=== PATIENT | male | born 1965 | race Caucasian/White ===

== ENCOUNTER 2022-11-06 14:11 | Emergency (ER) | payer SELFPAY ==
[2022-11-06 14:27] VITALS: BP 146/86; PULSE 89; RESP 16; TEMP 36.4; O2SAT 97; BMI 28.1
[2022-11-06] MEDS: ONDANSETRON 4 MG/2 ML INJ IV (14:32)
[2022-11-06 14:46] LABS: Add Manual Diff / Slide Review NO; Basophils Absolute Auto 0 /uL (0-100); Basophils Percent Auto 0.6 % (0-2); Eosinophils Absolute Auto 100 /uL (0-450); Eosinophils Percent Auto 0.9 % (2-4); Hematocrit 45.1 % (41-53); Hemoglobin 15.4 g/dL (13.5-17.5); Lymphocytes Absolute Auto 1400 /uL (1100-4500); Mean Corpuscular Hemoglobin 29.9 PG (26-34); Mean Corpuscular Volume 87.8 fL (80-100); Monocytes Absolute Auto 600 /uL (0-900); Monocytes Percent Auto 8.3 % (3-14); Neutrophils Absolute Auto 4900 /uL (1500-7000); Neutrophils Percent Auto 70.2 % (50-75); Platelet Count 245 X10^3/uL (150-400); Red Blood Cell Count 5.14 X10^6/uL (4.5-5.9); Red Cell Distribution Width 13.1 % (11.6-14.8); White Blood Cell Count 6.9 X10^3/uL (4.5-11.0)
[2022-11-06 14:54] LABS: Alanine Aminotransferase 37 IU/L (<50); Albumin 4.7 g/dL (3.5-5.0); Albumin Globulin Ratio 1.5 (1.0-2.8); Alkaline Phosphatase 83 U/L (38-126); Aspartate Aminotransferase 32 IU/L (17-59); BUN Creatinine Ratio 19.9 (6-22); Bilirubin Total 0.5 mg/dL (0.2-1.3); Blood Urea Nitrogen 27 mg/dL (9-20); Calcium 9.2 mg/dL (8.4-10.2); Carbon Dioxide 33 mmol/L (22-32); Chloride 100 mmol/L (98-107); Estimated Glomerular Filt Rate > 60 mL/min (>60); Globulin 3.2 g/dL (1.7-4.1); Glucose 107 mg/dL (70-100); HEMOLYSIS < 15 (0-50); Lipase 86 U/L (23-300); Potassium 4.2 mmol/L (3.4-5.1); Sodium 139 mmol/L (137-145); Total Protein 7.9 g/dL (6.3-8.2)
[2022-11-06 15:15] VITALS: BP 133/81; PULSE 83; RESP 18; O2SAT 99
--- NOTE | 2022-11-06 15:48 | ED_ITS ---
HPI - Nausea/Vomiting/Diarrhea General Chief complaint: Nausea/Vomiting/Diarrhea Stated complaint: drank a 16 oz drink started vomiting feels weird Time Seen by Provider: 11/06/22 15:38 Source: patient Mode of arrival: Ambulatory History of Present Illness HPI Narrative: This is a 57-year-old gentleman who presents to the emergency department complaining of nausea and emesis episode x1 after he drank a very drank today. He states that he has felt dehydrated and has not been drinking much water over the last couple of days. He has a history of GERD and diverticulitis. States that he feels tired today, his states that he endorsed not feeling well this morning and having muscle aches. States he is had COVID 2 times refuses to take a COVID test. He denies upper respiratory symptoms, denies fever, chills, urinary changes, or stool changes. His last BM was before he came in states it was normal and soft. Denies any pain at this time, states that he he feels much better and would like to go home. Related Data Previous Rx's Medication Instructions Recorded ciprofloxacin HCl 500 mg tablet 500 mg PO BID 10 days #0 tabs 01/15/17 (Cipro) levofloxacin 750 mg tablet 750 mg PO QDAY 10 days #0 tabs 01/15/17 (Levaquin) tramadol 50 mg tablet 1 - 2 tab PO Q4HP PRN #10 tabs 01/15/17 ondansetron 4 mg disintegrating 4 mg PO Q8H PRN nausea and 11/06/22 tablet vomiting #10 tabs Allergies Allergy/AdvReac Type Severity Reaction Status Date / Time No Known Drug Allergies Allergy Verified 11/06/22 14:27 Review of Systems Review of Systems ROS Unobtainable: All systems reviewed & are unremarkable except as noted in HPI and below Patient History Social History Smoking Status: Unknown if ever smoked Smoking Status: Unknown if ever smoked alcohol intake frequency: holidays/special occasions only Substance Use Type: does not use Exam Narrative Exam Narrative: Reviewed vitals signs and nursing notes. General: cooperative, in no acute distress, well groomed, appears tired and uncomfortable, wishes to go home. HEENT: symmetrical facial expressions, dry mucous membranes Cardiovascular: regular rate and rhythm, no peripheral edema, warm extremities Respiratory: normal effort, able to speak in complete sentences, without wheezing, stridor, or abnormal breath sounds. No retractions or tachypnea. GI: abdomen soft, nontender to palpation in all quadrants, nondistended, without masses, rebound tenderness or CVA tenderness bilaterally. MSK: moves all extremities, neurovascularly intact, no weakness, normal tone Skin: brisk capillary refill, without pallor or erythema Neuro: normal speech and cognition, A&O x3, ambulatory, clear speech Initial Vital Signs Initial Vital Signs: Vital Signs Temperature 97.6 F 11/06/22 14:27 Pulse Rate 89 11/06/22 14:27 Respiratory Rate 16 11/06/22 14:27 Blood Pressure 146/86 H 11/06/22 14:27 Pulse Oximetry 97 11/06/22 14:27 Oxygen Delivery Method Room Air 11/06/22 14:27 Course Orders Ordered: ED Orders 11/06/22 14:30 Complete Blood Count AUTO DIFF Stat Comprehensive Metabolic Panel Stat Lipase Stat 11/06/22 14:42 EKG-12 Lead Stat 11/06/22 15:39 UA Complete [Urinalysis and Microscopic] Stat 11/06/22 15:51 Covid-19 + FLU A/B + RSV - PCR Stat Ondansetron HCl (Ondansetron 4 Mg/2 Ml Inj) 4 mg IV NOW PRN PRN Reason: Nausea And Vomiting Last Admin: 11/06/22 14:32 Dose: 4 mg Documented By: [place] Vital Signs Vital signs: Vital Signs - 8 hr 11/06/22 14:27 Temperature 97.6 F Pulse Rate 89 Respiratory Rate 16 Blood Pressure 146/86 H Pulse Oximetry 97 Oxygen Delivery Method Room Air MDM - Nausea/Vomiting/Diarrhea Lab Data 11/06/22 14:30 11/06/22 14:30 Labs: Lab Results 11/06/22 11/06/22 Range/Units 14:30 14:30 WBC 6.9 (4.5-11.0) X10^3/uL RBC 5.14 (4.5-5.9) X10^6/uL Hgb 15.4 (13.5-17.5) g/dL Hct 45.1 (41-53) % MCV 87.8 (80-100) fL MCH 29.9 (26-34) PG MCHC 34.0 (30-36) % RDW 13.1 (11.6-14.8) % Plt Count 245 (150-400) X10^3/uL Neut % (Auto) 70.2 (50-75) % Lymph % (Auto) 20.0 L (25-40) % Petroleum % (Auto) 8.3 (3-14) % Eos % (Auto) 0.9 L (2-4) % Baso % (Auto) 0.6 (0-2) % Neut # (Auto) 4900 (3274-7653) /uL Lymph # (Auto) 1400 (3333-3552) /uL Petroleum # (Auto) 600 (0-900) /uL Eos # (Auto) 100 (0-450) /uL Baso # (Auto) 0 (0-100) /uL Sodium 139 (137-145) mmol/L Potassium 4.2 (3.4-5.1) mmol/L Chloride 100 (98-107) mmol/L Carbon Dioxide 33 H (22-32) mmol/L BUN 27 H (9-20) mg/dL Creatinine 1.36 H (0.66-1.25) mg/dL Estimated GFR > 60 (>60) mL/min BUN/Creatinine Ratio 19.9 (6-22) Glucose 107 H (70-100) mg/dL Calcium 9.2 (8.4-10.2) mg/dL Total Bilirubin 0.5 (0.2-1.3) mg/dL AST 32 (17-59) IU/L ALT 37 (<50) IU/L Alkaline Phosphatase 83 (38-126) U/L Total Protein 7.9 (6.3-8.2) g/dL Albumin 4.7 (3.5-5.0) g/dL Globulin 3.2 (1.7-4.1) g/dL Albumin/Globulin Ratio 1.5 (1.0-2.8) Lipase 86 (23-300) U/L Urine Dip Bedside Urine Glucose Negative Bedside Urine Bilirubin - Negative Bedside Urine Ketone - Negative Urine Specific [place] 1.015 Bedside Urine Occult Blood - Negative Bedside Urine pH 7.0 Bedside Urine Protein - Negative Bedside Urine Urobilinogen - Negative Bedside Urine Nitrite - Negative Bedside Urine Leukocytes - Negative Esterase MDM Narrative Medical decision making narrative: Chief Complaint: Emesis x1, fatigue Independent historian: Patient Differential diagnoses include but are not limited to: Acute viral process including COVID-19, biliary disease, gastroenteritis, GERD, bowel obstruction, perforated viscus, appendicitis, colitis, diverticulitis, IBD/IBS, intestinal ischemia, obstructive uropathy, lumbar radiculopathy, acute cystitis, pyelonephritis, acute hepatitis, mesenteric ischemia, urinary retention. Doubt atypical ACS. No peritoneal signs on abdominal exam. Patient remains p.o. tolerant. Serial abdominal exam without increase in abdominal pain. Extensive conversation about ER return precautions and need for close follow-up. I have independently reviewed the patient's vital signs and nursing notes as well as prior records if available. Pertinent lab findings reviewed: Patient's CBC shows lymphopenia without other abnormalities, CMP is significant for creatinine of 1.36 with most recent from 2017 of 0.9, BUN of 27 and carbon dioxide of 33 with a GFR of over 60. No elevation to his liver enzymes or lipase. Urine dip is negative for WBCs or RBCs. When it met with the patient, he wishes to go home, denies wanting viral testing or additional testing because he states that he feels better would like to go home. He appears quite fatigued, we discussed his creatinine, and I will wanted to complete a Respiratory PCR to further evaluate the lymphopenia and support his muscle aches that he complained of having this morning. I encouraged him to start hydrating with plenty of clear fluids, I encouraged him to come back tomorrow or if he feels worse. Discussed that he can have recurrent divert iculitis but he denies stool changes, abdominal pain and was nontender to abdominal exam without flank pain bilaterally. This is most likely an acute viral process however he does have history of GERD, takes Pepcid at night and pantoprazole in the morning. I encouraged him to continue on this but he denies any worsening epigastric pain. He is nontoxic, without fever, and understands to return to the emergency department for any worsening of his symptoms and to recheck with his primary care provider as needed. Social considerations that may affect disposition: none Questions are addressed and there is agreement with the plan and for follow-up. Patient is appropriate for outpatient management. MIPS: This encounter doesn't have any diagnosis' associated with MIPS criteria. Discharge Plan Departure Patient Disposition: Home Clinical Impression: Vomiting Qualifiers: Vomiting type: unspecified Nausea presence: without nausea Qualified Code(s): R11.11 - Vomiting without nausea Instructions: DI for Dehydration -- Adult, DI for Vomiting -- Adult Activity Restrictions/Additional Instructions: *You have been diagnosed with an episode of vomiting which could be due to a viral illness. Your lab work does not suggest a bacterial infection however it does show that you are dehydrated and your kidney function has slightly worsened. This will respond well to hydration. Please use Zofran as needed for nausea. This could be another problem like diverticulitis, kidney stone, a viral illness like gastroenteritis or COVID, could also be influenza. Please follow-up with your primary care provider if you are having worsening symptoms, or come back to the emergency department if you are unable to keep anything down. Please treat fever with Tylenol and ibuprofen. I suggest follow-up with Gastroenterology for repeat endoscopy if you have worsening epigastric pain. The urine does not look infected however it also confirms that you are dehydrated. Please drink plenty of clear fluids today and tomorrow, use Zofran as needed, rehydrate herself, if you notice that you are having abdominal pain in the lower quadrants, this may be a recurrence of diverticulitis so please consider a stool softener if you need one. *What to do: *Please continue to take your regular medications as directed. [x ] New medication prescriptions sent to your pharmacy: [[facility] ] [ ] New medication written as a paper prescription [ ] No new medications given *Please follow up with your primary care provider in 2-3 days, call for an appointment. Let them know you were seen in the Emergency Department and that we asked that you be seen for follow-up. We will electronically transmit a record of today's note if your PCP is in our system *If you do not have a primary care provider please contact [phone] to establish care with one of [facility] primary care providers. *Return to Emergency Department if you should have any new, worsening, or conc erning symptoms, such as [fever greater than 101F, chills, worsening pain, persistent vomiting or other bothersome symptoms]. Prescriptions: New ondansetron 4 mg tablet,disintegrating 4 mg PO Q8H PRN (Reason: nausea and vomiting) Qty: 10 0RF No Action ciprofloxacin HCl [Cipro] 500 MG tablet 500 mg PO BID 10 Days Qty: 0 0RF levofloxacin [Levaquin] 750 MG tablet 750 mg PO QDAY 10 Days Qty: 0 0RF tramadol 50 MG tablet 1 - 2 tab PO Q4HP PRNQty: 10 0RF Referrals: Tracy Orozco PA-C [Primary Care Provider] - Stand Alone Forms: Patient Portal/API
[2022-11-06 16:36] VITALS: BP 134/83; PULSE 84; O2SAT 96
--- NOTE | 2022-11-06 16:42 | PC.NURSE ---
offered patient to do a covid, rsv, and influenza swab. pt declined at this time. reports he feels better from when he came in. pt was able to drink water. no vomitting.
[2022-11-06 16:48] LABS: Appearance Urine UA CLEAR; Bilirubin Urine UA NEGATIVE (NEGATIVE); Color Urine UA YELLOW; Glucose Urine UA NEGATIVE (Negative); Ketones Urine UA NEGATIVE (NEGATIVE); Leukocyte Esterase Urine UA NEGATIVE (NEGATIVE); Nitrite Urine UA NEGATIVE (Negative); Occult Blood Urine UA NEGATIVE (Negative); Protein Urine UA NEGATIVE (Negative); Urobilinogen Urine UA 0.2 E.U./dL (0.2); pH Urine UA 7.5 (4.5-8.0)
[2022-11-06 17:02] LABS: Culture Indicated Urine Cult Not Indicated
[2022-11-06 17:03] LABS: Bacteria Urine None Seen; RBC Urine None Seen (0-5/HPF); Squamous Epithelial Cell Urine None Seen (0-5/HPF); WBC Urine None Seen (0-5/HPF)
== END 2022-11-06 16:49 | disposition home or self-care (01) ==
PROVIDERS: Emergency Medicine; Emergency Provider Nurse Practitioner Critical Care Medicine; Family Provider Physician Assistant Medical; PCP Physician Assistant Medical
DX: R11.11 Vomiting without nausea (principal); Z86.16 Personal history of COVID-19; R10.9 Unspecified abdominal pain
CPT/HCPCS: 36415; 80053; 81001; 81003; 83690; 85025; 93005; 96374; 99284; J2405

== ENCOUNTER 2025-03-11 08:24 | Emergency (ER) | payer OTHER, SELFPAY ==
[2025-03-11 09:08] VITALS: BP 123/82; PULSE 74; RESP 16; TEMP 36.8; O2SAT 99; BMI 27.3
--- NOTE | 2025-03-11 09:14 | DI.RAD.S_ITS ---
PROCEDURE: XR ANKLE RT MIN 3V INDICATIONS: right ankle pain TECHNIQUE: 3 views of the ankle were acquired. COMPARISON: None. FINDINGS: Mild degenerative changes of the right ankle with joint space narrowing and small osteophytes at the tibiotalar, talonavicular and calcaneocuboid joints. No radiographic evidence of displaced fracture, dislocation or high attenuation soft tissue foreign body. IMPRESSION: Mild degenerative changes. If symptoms persist or worsen, or there is high clinical suspicion of right ankle abnormality, MRI could be performed. Dictated by: Boris Atkinson M.D. on 03/11/2025 at 10:53 Approved by: Boris Atkinson M.D. on 03/11/2025 at 10:55
--- NOTE | 2025-03-11 11:17 | ED_ITS ---
HPI - Extremity Injury (Lower) General Chief Complaint: Extremity Injury, Lower Stated Complaint: right Ankle pain X 4 days Time Seen by Provider: 03/11/25 10:38 Source: patient Mode of arrival: Ambulatory History of Present Illness HPI Narrative: Mr. Patel is a pleasant 59-year-old male with a past medical history of diverticulitis who presents to the emergency department for right ankle pain x4 days. Patient denies any known inciting trauma or injury. States that on Friday morning he woke up with focal pain just distal to the right lateral malleolus. This pain has slowly started to get worse and last night he started having difficulty walking because of this right ankle pain. The pain is localized in the same area just distal to the right lateral malleolus, there is no overlying skin changes, swelling or redness. The pain is exacerbated by everting the right ankle and it feels like a very sharp pain like a ?bone is poking him?. The pain actually starts to get better the more he walks on it. He is never experienced this pain in the past. He denies any fevers, chills, lower leg swelling, bruising, redness, numbness, tingling, weakness. Related Data Previous Rx's ?Medication ?Instructions ?Recorded ciprofloxacin HCl 500 mg tablet 500 mg PO BID 10 days #0 tabs 01/15/17 (Cipro) levofloxacin 750 mg tablet 750 mg PO QDAY 10 days #0 t abs 01/15/17 (Levaquin) tramadol 50 mg tablet 1 - 2 tab PO Q4HP PRN #10 ta bs 01/15/17 ondansetron 4 mg disintegrating 4 mg PO Q8H PRN nausea and 11/06/22 tablet vomiting #10 tabs Allergies Allergy/AdvReac Type Severity Reaction Status Date / Time No Known Drug Allergies Allergy Verified 03/11/25 09:10 Review of Systems Review of Systems ROS Unobtainable: All systems reviewed & are unremarkable except as noted in HPI and below Patient History Social History Smoking Status: Never smoker Smoking Status: Never smoker alcohol intake frequency: holidays/special occasions only Exam Narrative Exam Narrative: GENERAL: 59 year old patient appears stated age. Well-developed patient, in no acute distress. HEAD: Atraumatic. Normocephalic. NECK: Trachea midline. Cervical ROM intact. CARDIOVASCULAR: Regular rate RESPIRATORY: Nonlabored respirations. Speaking in clear, full sentences. EXTREMITIES: Right ankle Without obvious deformity, edema. No skin changes, erythema, increased warmth or ecchymoses. Patient has focal tenderness to palpation just distal to the right lateral malleolus and pain is elicited with eversion of the right ankle. No pain with inversion of right ankle. Strong DP and PT pulses, brisk capillary refill and sensation intact to light touch. No calf edema or tenderness. NEURO: AOx3. Clear speech. Moves all 4 extremities appropriately. SKIN: No rash or erythema of visible areas Initial Vital Signs Initial Vital Signs: Vital Signs Temperature 98.3 F 03/11/25 09:08 Pulse Rate 74 03/11/25 09:08 Respiratory Rate 16 03/11/25 09:08 Blood Pressure 123/82 03/11/25 09:08 Pulse Oximetry 99 03/11/25 09:08 Oxygen Delivery Method Room Air 03/11/25 09:08 Course Orders Ordered: ED Orders 03/11/25 09:14 XR ankle RT min 3V Stat Discontinued Medications Ketorolac Tromethamine (Ketorolac 30 Mg/Ml Vial) 30 mg IM NOW ONE Stop: 03/11/25 11:31 Last Admin: 03/11/25 11:38 Dose: 30 mg Vital Signs Vital signs: Vital Signs - 8 hr 03/11/25 09:08 03/11/25 12:01 Temperature 98.3 F Pulse Rate 74 83 Respiratory Rate 16 16 Blood Pressure 123/82 122/66 Pulse Oximetry 99 97 Oxygen Delivery Method Room Air Room Air MDM - Extremity Injury (Lower) Medical Records Attestation: I reviewed the patient's medical records. Imaging Data Right Ankle X-Ray: Radiologist's Impression: PROCEDURE: XR ANKLE RT MIN 3V INDICATIONS: right ankle pain TECHNIQUE: 3 views of the ankle were acquired. COMPARISON: None. FINDINGS: Mild degenerative changes of the right ankle with joint space narrowing and small osteophytes at the tibiotalar, talonavicular and calcaneocuboid joints. No radiographic evidence of displaced fracture, dislocation or high attenuation soft tissue foreign body. IMPRESSION: Mild degenerative changes. If symptoms persist or worsen, or there is high clinical suspicion of right ankle abnormality, MRI could be performed. Dictated by: Boris Atkinson M.D. on 03/11/2025 at 10:53 Approved by: Boris Atkinson M.D. on 03/11/2025 at 10:55 [facility] Narrative Medical decision making narrative: 59-year-old male with a past medical history of diverticulitis who presents to the emergency department for right ankle pain x4 days. Differential diagnosis includes but is not limited to right ankle sprain, strain, fracture, dislocation, arthritis, gout, cellulitis, etc. On exam the patient is in no acute distress, nontoxic-appearing, all vital signs within normal limits. Right ankle without any visible abnormalities, no signs of cellulitis or gout. Calf is soft and nontender. Foot is neurovascularly intact. Patient has focal pain just distal to the lateral malleolus and pain with eversion. Right ankle x-ray was obtained in triage revealing degenerative changes of the right ankle with joint space narrowing and small osteophytes of the tibiotalar, talonavicular and calcaneal cuboid joints. After shared decision-making with the patient, we will treat using right ankle air splint, Toradol for pain, rice therapy for home and follow up with the PCP and orthopedics for further management. Discussed weight-bearing as tolerated, patient has crutches at home that he would prefer to use but states that pain actually improves the longer he walks on it. Discussed strict ED return precautions, patient verbalized understanding all information is agreeable to the plan, questions answered, stable for discharge home, ambulatory without assistance. Discharge Plan Departure Patient Disposition: Home Clinical Impression: Osteophyte, right ankle, Arthritis of ankle, right Instructions: DI for Ankle Pain Activity Restrictions/Additional Instructions: Dear Amanda, Thank you for coming to emergency department. Today you were evaluated for right ankle pain. Your x-ray does reveal degenerative changes and osteophytes. As we discussed, I would like you to where the right ankle brace for support, use crutches as needed, take ibuprofen and Tylenol for pain, and follow up with your primary care doctor and an orthopedic surgeon for further evaluation. Please use RICE therapy for your pain in addition to ibuprofen/acetaminophen. Rest the painful area. Ice the area of pain/swelling for at least 15 minutes, 4x a day. Compress the area of swelling using a brace, wrap, or splint if applied. Elevate the painful or swollen extremity by supporting it above the level of the heart with pillows when sitting or laying. Please take Ibuprofen (Motrin/Advil) or Acetaminophen (Tylenol) for pain. These are available over the counter. You may take Ibuprofen 600 mg every 8 hours with food for pain. You may also take Acetaminophen 650 mg every 4-6 hours for pain. Do not exceed 3000 mg of Tylenol a day as this can cause liver damage. Do not drink alcohol with either of these medications. Please call to schedule an appointment with [facility] below. Please follow up with your primary care doctor within the next 2-3 days for ER follow-up. (If you do not have a PCP you can call [phone]. ?to schedule an appointment with an [facility] Primary Care Provider) IF YOU DEVELOP ANY NEW OR WORSENING SYMPTOMS, RETURN TO THE ER! Please read the attached instructions, they highlight more specific treatments and interventions for you at home. Thank you for letting me participate in your care, Soni Ward PA-C Prescriptions: No Action ciprofloxacin HCl [Cipro] 500 MG tablet 500 mg PO BID 10 Days Qty: 0 0RF levofloxacin [Levaquin] 750 MG tablet 750 mg PO QDAY 10 Days Qty: 0 0RF tramadol 50 MG tablet 1 - 2 tab PO Q4HP PRNQty: 10 0RF ondansetron 4 mg tablet,disintegrating 4 mg PO Q8H PRN (Reason: nausea and vomiting) Qty: 10 0RF Referrals: Margarito Tavares MD [Physician, Orthopedic Surgery] Referral Note: Right ankle pain Tracy Orozco PA-C [Primary Care Provider, Medical] Stand Alone Forms: Patient Portal/API
[2025-03-11] MEDS: KETOROLAC 30 MG/ML VIAL IM (11:38)
[2025-03-11 12:01] VITALS: BP 122/66; PULSE 83; RESP 16; O2SAT 97
== END 2025-03-11 12:03 | disposition home or self-care (01) ==
PROVIDERS: Emergency Provider Physician Assistant; Family Provider Physician Assistant Medical; PCP Physician Assistant Medical
DX: M25.771 Osteophyte, right ankle (principal); M19.071 Primary osteoarthritis, right ankle and foot
CPT/HCPCS: 29515; 73610; 96372; 99283; J1885